=== PATIENT | female | born 1945 | race Two or more races ===

== ENCOUNTER 2019-01-16 08:37 | Outpatient (CLI) | payer MEDICARE, MEDICAID | END 2019-01-16 23:59 | disposition home or self-care (01) | LOC: CFH 08:37 | PROVIDERS: ATTEND Nurse Practitioner Family | DX: I10 Essential (primary) hypertension (principal); R94.31 Abnormal electrocardiogram [ECG] [EKG]; R06.02 Shortness of breath | CPT/HCPCS: 93306 ==